=== PATIENT | female | born 1945 | race Two or more races ===

== ENCOUNTER 2020-08-29 14:12 | Outpatient (CLI) | payer OTHER | END 2020-08-29 15:00 | disposition home or self-care (01) | LOC: EDBD 14:12 → LAB 14:12 | DX: Z03.818 Encounter for observation for suspected exposure to other biological agents ruled out (principal); Z20.828 Contact with and (suspected) exposure to other viral communicable diseases; C19 Malignant neoplasm of rectosigmoid junction; R19.4 Change in bowel habit ==

== ENCOUNTER 2020-09-03 09:30 | Inpatient (IN) | payer OTHER ==
[2020-09-03] MEDS ORDERED: [UNRECOGNIZED DRUG - OTHER] PO (16:58)
[2020-09-03] MEDS ORDERED: TOPROL XL25 M1 PO (16:59)
[2020-09-03] MEDS ORDERED: FORTAMET500 MG PO (16:59)
[2020-09-03] MEDS ORDERED: ENALAPRIL MALEA10 MG PO (16:59)
[2020-09-03] MEDS ORDERED: NASAL MIST126 ML (17:00)
[2020-09-03] MEDS ORDERED: LANTUS (17:00)
[2020-09-05] MEDS ORDERED: OMEPRAZOLE20 MG (08:13)
[2020-09-05] MEDS ORDERED: LANTUS SOL100 UNIT/1 (08:13)
[2020-09-05] MEDS ORDERED: CANDESARTAN CIL16 MG (08:14)
[2020-09-07] MEDS ORDERED: PRILOSEC OTC20 MG PO (13:45)
[2020-09-07] MEDS ORDERED: PERCOCET 5-3251 EACH PO (13:45)
== END 2020-09-07 22:41 | disposition home or self-care (01) | DRG 331 ==
LOC: SURG 09-04 05:50 → O/R 09-04 05:50 → SURH 09-04 09:30 → SURG 09-04 15:23
PROVIDERS: ADMIT Surgery; ATTEND Surgery
PROC: 07BC4ZX Excision of Pelvis Lymphatic, Percutaneous Endoscopic Approach, Diagnostic (ICD-10-PCS; 2020-09-04)
PROC: 0DBN4ZZ Excision of Sigmoid Colon, Percutaneous Endoscopic Approach (ICD-10-PCS; principal; 2020-09-04 14:30)
PROC: 4A12X4Z Monitoring of Cardiac Electrical Activity, External Approach (ICD-10-PCS; 2020-09-05)
DX: C19 Malignant neoplasm of rectosigmoid junction (principal); K59.04 Chronic idiopathic constipation; I10 Essential (primary) hypertension; E11.8 Type 2 diabetes mellitus with unspecified complications; I73.9 Peripheral vascular disease, unspecified

== ENCOUNTER 2021-09-01 08:45 | Day surgery (SDC) | payer OTHER ==
[~2021-09-01 08:45] MED LIST: CANDESARTAN CIL16 MG; ENALAPRIL MALEA10 MG PO; FORTAMET500 MG PO; LANTUS; LANTUS SOL100 UNIT/1; NASAL MIST126 ML; OMEPRAZOLE20 MG; PERCOCET 5-3251 EACH PO; PRILOSEC OTC20 MG PO; TOPROL XL25 M1 PO; [UNRECOGNIZED DRUG - OTHER] PO
== END 2021-09-01 14:20 | disposition home or self-care (01) ==
LOC: AMB-ENDOS 08:45
PROVIDERS: ATTEND Surgery
DX: K62.89 Other specified diseases of anus and rectum (principal); K64.8 Other hemorrhoids; Z20.822 Contact with and (suspected) exposure to COVID-19